=== PATIENT | female | born 2000 | race Caucasian/White ===

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

== ENCOUNTER → 2022-08-23 | Outpatient (REF) | payer OTHER, BC ==
[~2022-08-23] MED LIST changes: -MOME50SP; +NASO50SP3
== END ==
LOC: M WUC 16:43
PROVIDERS: ATTEND Student in an Organized Health Care Education/Training Program
DX: R30.0 Dysuria (principal)